=== PATIENT | female | born 1980 | race Caucasian/White ===

== ENCOUNTER 2023-10-14 10:39 | Outpatient (OUT) | payer OTHER, MEDICAID, SELFPAY ==
[2023-10-14 11:01] LABS: Basophils Percent Auto 0.6 % (0.2-2.0); Eosinophils Absolute Auto 0.2 10^3/uL (0.0-0.7); Eosinophils Percent Auto 2.5 % (0.9-7.0); Hematocrit 39.4 % (36.0-48.0); Hemoglobin 13.1 g/dL (12.0-16.0); Immature Granulocytes Abs Auto 0.02 10^3/uL (0.00-0.03); Immature Granulocytes Pct Auto 0.3 % (0.0-0.5); Mean Corpuscular HGB Conc 33.2 g/dL (29.9-35.2); Mean Corpuscular Hemoglobin 31.1 pg (26.7-34.0); Mean Corpuscular Volume 93.6 fL (81.0-99.0); Mean Platelet Volume 9.9 fL (9.5-13.5); Monocytes Absolute Auto 0.5 10^3/uL (0.3-0.8); Monocytes Percent Auto 6.6 % (1.7-12.0); Neutrophils Absolute Auto 4.1 10^3/uL (1.4-6.5); Platelet Count 294 10^3/uL (150-450); Red Blood Count 4.21 10^6/uL (4.20-5.40); White Blood Count 6.8 10^3/uL (4.0-11.0)
[2023-10-14 12:48] LABS: Estimated Average Glucose 97 mg/dL
[2023-10-14 13:14] LABS: Alanine Aminotransferase 27 U/L (14-59); Albumin Globulin Ratio 1.1; Albumin Level 3.9 g/dL (3.4-5.0); Alkaline Phosphatase 49 U/L (46-116); Anion Gap 10.4; Aspartate Amino Transferase 18 U/L (15-37); Bilirubin Total 1.5 mg/dL (0.2-1.0); Calcium 9.2 mg/dL (8.5-10.1); Carbon Dioxide 31.4 mmol/L (21.0-32.0); Chloride 102 mmol/L (98-107); Chol HDL Ratio 3.4; Cholesterol 226 mg/dL (<=200); Estimated GFR (African America >60 (>=60); Estimated GFR (Non-African Ame >60 (>=60); Free T3 1.95 pg/mL (2.18-3.98); Globulin 3.5 g/dL; Glucose 86 mg/dL (74-106); HDL Cholesterol 67 mg/dL (40-60); Potassium 3.8 mmol/L (3.5-5.1); Sodium 140 mmol/L (136-145); Thyroid Stimulating Hormone 1.455 uIU/mL (0.358-3.740); Total Protein 7.4 g/dL (6.4-8.2); Triglycerides 92 mg/dL (<=150); VLDL CHOLESTEROL 18.4 mg/dL
[2023-10-15 12:07] LABS: Insulin 4.9 uIU/mL (2.6-24.9)
== END 2023-10-14 10:40 | disposition home or self-care (01) ==
LOC: LAB 10:45
PROVIDERS: PCP Family Medicine; Visit Provider Family Medicine
DX: Z00.00 Encounter for general adult medical examination without abnormal findings (principal)
CPT/HCPCS: 36415; 80053; 80061; 82306; 83036; 83525; 83540; 84436; 84443; 84481; 85025

== ENCOUNTER 2024-01-19 10:35 | Outpatient (OUT) | payer OTHER, SELFPAY ==
[2024-01-19 11:40] LABS: Thyroid Stimulating Hormone 1.629 uIU/mL (0.358-3.740)
[2024-01-19 11:59] LABS: Free T4 1.01 ng/dL (0.76-1.46)
== END 2024-01-19 10:36 | disposition home or self-care (01) ==
LOC: LAB 10:40
PROVIDERS: PCP Family Medicine; Visit Provider Family Medicine
DX: R79.89 Other specified abnormal findings of blood chemistry (principal)
CPT/HCPCS: 36415; 84439; 84443

== ENCOUNTER 2024-01-26 13:29 | Outpatient (OUT) | payer OTHER, SELFPAY ==
--- NOTE | 2024-01-26 13:31 | US_ITS ---
[address] [address] Patient Name: NANDO MURCIA MRN: [id number] date: 1980 Sex: F Assigned Patient Location: US Current Patient Location: US Accession/Order Number: [id number] Exam Date: 01/26/2024 13:32 Report Date: 01/26/2024 14:59 At the request of: ISAEL KENDRICK Procedure: US renal bladder EXAMINATION: US renal bladder HISTORY: Frequency Of Micturition R35.0 COMPARISON: No relevant comparison available. TECHNIQUE: Ultrasound examination was performed of the bladder. FINDINGS: Right Kidney: Normal in size, contour and cortical echotexture. The cortex measures 0.9 cm. 5 mm echogenic focus lower pole, nonobstructing nephrolith. No solid cortical mass or hydronephrosis Height: 3.7 cm Length: 9.5 cm Width: 5.1 cm Left Kidney: Normal in size, contour and cortical echotexture. The cortex measures 0.9 cm. No solid cortical mass, hydronephrosis or obstructing nephrolithiasis. Height: 5.6 cm Length: 10.3 cm Width: 5.9 cm Urinary bladder: Prevoid volume 733 mL, post void volume 66 mL Ureteral jets: Visualized bilaterally US/US renal bladder IMPRESSION: Nonobstructing 5 mm right nephrolith Electronically authenticated by: JOHNATHAN SAMANIEGO Date: 01/26/2024 14:59
--- NOTE | 2024-01-26 13:31 | US_ITS ---
The [address] [address] Patient Name: NANDO MURCIA MRN: [id number] date: 1980 Sex: F Assigned Patient Location: US Current Patient Location: US Accession/Order Number: [id number] Exam Date: 01/26/2024 13:32 Report Date: 01/26/2024 15:00 At the request of: ISAEL KENDRICK Procedure: US pelvis EXAMINATION: US pelvis HISTORY: Frequency Of Micturition R35.0 COMPARISON: No relevant comparison available. FINDINGS: The uterus is surgically absent. The right ovary is normal measuring 3.1 x 1.7 x 2.5 cm. Area of anechoic echogenicity measuring 1.8 cm, simple cyst. Left ovary is not visualized No free fluid US/US pelvis IMPRESSION: 1.8 cm right ovarian cyst Electronically authenticated by: JOHNATHAN SAMANIEGO Date: 01/26/2024 15:00
== END 2024-01-26 13:30 | disposition home or self-care (01) ==
LOC: US 13:29
PROVIDERS: PCP Family Medicine; Visit Provider Family Medicine
DX: R35.0 Frequency of micturition (principal); N83.291 Other ovarian cyst, right side; N20.0 Calculus of kidney
CPT/HCPCS: 76770; 76856

== ENCOUNTER 2024-05-17 08:56 | Outpatient (RCR) | payer OTHER, SELFPAY | END 2024-05-18 16:39 | disposition home or self-care (01) | LOC: PT 08:56 | PROVIDERS: PCP Family Medicine; Visit Provider Family Medicine | DX: M51.36 Other intervertebral disc degeneration, lumbar region (principal) | CPT/HCPCS: 97110; 97140; 97163 ==